=== PATIENT | female | born 1995 | race Caucasian/White ===

== ENCOUNTER 2023-04-09 20:43 | Emergency (ER) | payer MEDICAID ==
[~2023-04-09] VITALS: Ht 162.6 cm; Wt 114.0 kg
[2023-04-09 21:15] VITALS: O2SAT 99
[2023-04-10] MEDS ORDERED: MAGNESIUM/ALUMINUM HYDROXIDE/SIMETHICONE 30ML UDC PO ONE
[2023-04-10] MEDS ORDERED: NAPR-681 PO (01:32)
[2023-04-10] MEDS ORDERED: AMOX-494 MT (01:32)
[2023-04-10 01:47] LABS: HCG SCREEN NEGATIVE
[2023-04-10] MEDS ORDERED: MAGNESIUM/ALUMINUM HYDROXIDE/SIMETHICONE 30ML UDC PO NR (02:15)
[2023-04-10 02:23] VITALS: BP 130/88; PULSE 57; RESP 18; TEMP 98.2
== END 2023-04-10 03:13 | disposition home or self-care (01) ==
LOC: ER 20:43
DX: J02.9 Acute pharyngitis, unspecified (principal); K02.9 Dental caries, unspecified
CPT/HCPCS: 81025; 84703; 99283